=== PATIENT | female | born 1985 | race Caucasian/White ===

== ENCOUNTER 2021-12-05 13:48 | Emergency (ER) | payer BC ==
[2021-12-06 17:27] LABS: SARS-CoV-2 PCR by NAA Not Detected (NotDetected)
== END 2021-12-05 15:54 | disposition home or self-care (01) ==
LOC: CSHERS 13:48
DX: R50.9 Fever, unspecified (principal); R05.9 Cough, unspecified; Z20.822 Contact with and (suspected) exposure to COVID-19
CPT/HCPCS: 99283; U0003; U0005

== ENCOUNTER 2024-09-03 16:54 | Emergency (ER) | payer OTHER ==
[2024-09-03] MEDS ORDERED: Pseudoephedrine HCl 30 MG TAB PO SCH (19:45)
== END 2024-09-03 20:28 | disposition home or self-care (01) ==
LOC: CSHERS 16:54
DX: H65.93 Unspecified nonsuppurative otitis media, bilateral (principal); J01.90 Acute sinusitis, unspecified; Z87.891 Personal history of nicotine dependence
CPT/HCPCS: 36416; 87428; 99284